=== PATIENT | female | born 1950 | race Caucasian/White ===

== ENCOUNTER → 2020-01-25 12:46 | Outpatient (CLI) | payer MEDICARE, OTHER, SELFPAY ==
--- NOTE | 2020-01-25 | DI.US.S_ITS ---
ULTRASOUND OF LEFT BREAST: 01/25/2020 CLINICAL: Focal left breast pain. Comparison is made to exams dated: 01/25/2020 mammogram - [facility], 01/07/2019 mammogram, 01/05/2018 mammogram, and 01/01/2017 mammogram - [facility]. Real-time ultrasound of the left breast was performed. Lemons scale images of the real-time examination were reviewed. No significant abnormalities were seen sonographically in the left breast and axilla. IMPRESSION: BENIGN There is no sonographic evidence of malignancy. Recommend clinical followup for persistent or worsening symptoms and/or development of any clinically suspicious findings. A 1 year screening mammogram is recommended. This exam was interpreted at Station ID: [id number]. Electronically Signed By: You Begum M.D. aty/:01/25/2020 15:32:32 letter sent: Normal Exam Ultrasound BI-RADS: 2 Benign
--- NOTE | 2020-01-25 | DI.MG.S_ITS ---
BILATERAL DIGITAL DIAGNOSTIC MAMMOGRAM 3D/2D: 01/25/2020 CLINICAL: Left breast pain. Comparison is made to exams dated: 01/07/2019 mammogram, 01/05/2018 mammogram, and 01/01/2017 mammogram - [facility]. There are scattered fibroglandular elements in both breasts. There is a benign oval lymph node in the left axillary tail. This is not significantly changed compared to 2017 mammogram. No other significant masses, calcifications, or other findings are seen in either breast. IMPRESSION: INCOMPLETE: NEEDS ADDITIONAL IMAGING EVALUATION There is no abnormality seen in the left breast to correspond with the area of clinical concern, palpable abnormality, and pain indicated by square marker in the posterior depth in the upper aspect, however, ultrasound is recommended and will be scheduled to immediately follow this exam. This exam was interpreted at Station ID: [id number]. NOTE: For mammograms, a report in lay terms will be sent to the patient. Approximately 15% of breast malignancies will not be visualized mammographically. In the management of a palpable breast mass, a negative mammogram must not discourage biopsy of a clinically suspicious lesion. Electronically Signed By: You Begum M.D. aty/:01/25/2020 14:26:34 ACR BI-RADS Category 0: Incomplete [id number]
== END ==
PROVIDERS: PCP Family Medicine; Referring Provider Family Medicine; Visit Provider Family Medicine
DX: R92.8 Other abnormal and inconclusive findings on diagnostic imaging of breast (principal); N64.4 Mastodynia
CPT/HCPCS: 76642; 77066; G0279

== ENCOUNTER → 2020-02-10 14:40 | Outpatient (CLI) | payer MEDICARE, OTHER, SELFPAY ==
--- NOTE | 2020-02-10 | DI.RAD.S_ITS ---
PROCEDURE: XR CHEST 2V INDICATIONS: Other forms of dyspnea TECHNIQUE: 2 views of the chest were acquired. COMPARISON: None. FINDINGS: Surgical changes and devices: None. Lungs and pleura: Lungs are clear. No pleural effusions or pneumothorax. Mediastinum: Mediastinal contours are normal. Heart size is normal. Bones and chest wall: No suspicious bony abnormalities. Soft tissues appear unremarkable. IMPRESSION: No pneumonia seen, source of dyspnea is not identified. Dictated by: Cooper Lopez M.D. on 02/10/2020 at 15:54 Approved by: Cooper Lopez M.D. on 02/10/2020 at 15:54
== END ==
PROVIDERS: PCP Family Medicine; Referring Provider Internal Medicine Cardiovascular Disease; Visit Provider Internal Medicine Cardiovascular Disease
DX: R06.09 Other forms of dyspnea (principal)
CPT/HCPCS: 71046

== ENCOUNTER → 2020-03-14 11:26 | Outpatient (CLI) | payer MEDICARE, OTHER, SELFPAY ==
[2020-03-15 08:10] LABS: COVID19 Sendout Not Detected (Not Detect)
== END ==
PROVIDERS: PCP Family Medicine; Visit Provider Physician Assistant
DX: Z01.812 Encounter for preprocedural laboratory examination (principal)
CPT/HCPCS: 87635

== ENCOUNTER → 2020-03-17 10:22 | Outpatient (CLI) | payer MEDICARE, OTHER, SELFPAY ==
--- NOTE | 2020-03-21 08:17 | PM.PFT.1 ---
Pulmonary Function Test Referral & Results Date Patient Seen: 03/17/20 Requesting provider: Nathan Carter Results: The spirometry demonstrates an FVC of 2.01 L which is 73% of predicted. The FEV1 was measured at 1.71 L which is 83% of predicted. The FEV1/FVC ratio was 85 which is 112% of predicted. Following the administration of bronchodilator there was no appreciable change. Lung volumes show an SVC of 2.06 L which is 77% of predicted. The diffusing capacity was measured at 17.58 which is 81% of predicted. No hemoglobin value was provided, so no correction for potential anemia could be made, if appropriate. The maximum voluntary ventilation was reduced Interpretation: This study demonstrates mild obstructive lung disease based on reduction FEV1. There is no evidence of benefit following bronchodilator There is also mild restrictive lung disease present based on reduction SVC There is also minimal reduction in diffusing capacity suggesting possibility of some element of disease at the capillary alveolar level Clinical correlation suggested
== END ==
PROVIDERS: PCP Family Medicine; Referring Provider Internal Medicine Cardiovascular Disease; Visit Provider Internal Medicine Cardiovascular Disease
DX: R06.09 Other forms of dyspnea (principal)
CPT/HCPCS: 94060; 94726; 94729

== ENCOUNTER → 2020-04-10 13:26 | Outpatient (CLI) | payer MEDICARE, OTHER, SELFPAY ==
[2020-04-11 07:27] LABS: COVID19 Sendout Not Detected (Not Detect)
== END ==
PROVIDERS: PCP Family Medicine; Visit Provider Physician Assistant
DX: Z11.59 Encounter for screening for other viral diseases (principal)
CPT/HCPCS: 87635

== ENCOUNTER → 2020-06-13 13:15 | Outpatient (CLI) | payer MEDICARE, OTHER, SELFPAY ==
--- NOTE | 2020-06-13 | DI.ECHO.S_ITS ---
[place] [facility]---------+ [facility] +---------+ : : [address] : : : : [id number] : : : : Phone: [phone]---------+ Echocardiogram Report + + :Name: MONY MARTINEZ Study Date: 06/13/2020 Height: 62 in : :[facility] Weight: 172 lb : : Gender: Female BSA: 1.8 m2 : :: 1950 Age: 70 yrs BP: 158/75 mmHg: :Reason For Study: DYSPNEA : : Performed By: Jed Bell : :Referring: MOOKIE MUIR : + + Interpretation Summary The ejection fraction is estimated to be 65-70%. There is no significant valvular heart disease. Procedure: A two-dimensional transthoracic echocardiogram with color flow and Doppler was performed. The study quality was technically good. There is no prior echocardiogram noted for this patient. The patient was in normal sinus rhythm during the exam. The patient had frequent PVCs during the exam. Left Ventricle: The left ventricle is normal in size. There is normal left ventricular wall thickness. The ejection fraction is estimated to be 65-70%. There are no focal wall motion abnormalities. Right Ventricle: The right ventricle is normal in size and function. Atria: The left atrium is mildly dilated. Right atrial size is normal. There is no Doppler evidence for an atrial septal defect. Mitral Valve: There is mild mitral annular calcification. There is trace mitral regurgitation. Aortic Valve: The aortic valve is trileaflet. The aortic valve opens well. No aortic regurgitation is present. Tricuspid Valve: The tricuspid valve is normal in structure and function. There is trace tricuspid regurgitation. The right ventricular systolic pressure is estimated to be at least 23 mmHg based on an estimated right atrial pressure of 3 mm Hg. Pulmonic Valve: The pulmonic valve is normal in structure and function. There is trace pulmonic regurgitation. Great Vessels: The aortic root is normal size. The dimensions of the ascending aorta are normal. The pulmonary artery is normal size. The IVC is of normal diameter and collapses greater than 50% with a sniff. This suggests a low right atrial pressure of 3 mm Hg. Pericardium/ Pleura There is no pericardial effusion. There is no pleural effusion. MMode/2D Measurements & Calculations LVIDd: 4.8 cm LVOT diam: 1.9 cm LVIDs: 2.3 cm Ao root diam: 2.7 cm FS: 51.1 % asc Aorta Diam: 2.9 cm EPSS: 0.16 cm Ao Arch Diam (Prox Trans): 2.2 cm IVSd: 0.81 cm LVPWd: 0.96 cm LV porras. diameter/BSA (cm/m^2): 2.7 LV sys. diameter/BSA (cm/m^2): 1.3 LA dimension: 3.1 cm RA long axis: 4.1 cm LA A2 area: 20.3 cm2 RA area: 11.6 cm2 LA A4 area: 19.9 cm2 RA vol: 28.0 ml LA length (vol): 5.2 cm RA : 15.6 ml/m2 LA vol: 65.9 ml IVC diam: 1.7 cm LA vol index: 36.8 ml/m2 TAPSE: 2.7 cm Doppler Measurements & Calculations Ao V2 max: 163.5 cm/sec LVOT Max Carmine: 114.2 cm/sec Ao V2 mean: 123.6 cm/sec LV V1 max P.2 mmHg Ao max P.7 mmHg LV V1 VTI: 24.0 cm Ao mean P.4 mmHg EUGENIA(I,D): 1.9 cm2 Ao V2 VTI: 35.7 cm EUGENIA(V,D): 1.9 cm2 sev ratio: 0.67 EUGENIA indexed to BSA (cm^2/m^2): 1.0 MV E max carmine: 117.4 cm/sec TR max carmine: 222.0 cm/sec MV A max carmine: 97.2 cm/sec TR max P.7 mmHg MV E/A: 1.2 PA V2 max: 107.0 cm/sec Med Peak E' Carmine: 5.2 cm/sec PA V2 mean: 83.1 cm/sec E/E' med: 22.8 PA mean P.0 mmHg Lat Peak E' Carmine: 6.1 cm/sec PA pr(Accel): 49.9 mmHg E/E' lat: 19.2 E/e' average: 21.0 MV dec time: 0.21 sec SV(LVOT): 66.9 ml Reading Physician:03:16 PM
== END ==
PROVIDERS: PCP Family Medicine; Referring Provider Internal Medicine Cardiovascular Disease; Visit Provider Internal Medicine Cardiovascular Disease
DX: R06.09 Other forms of dyspnea (principal)
CPT/HCPCS: 93306